=== PATIENT | female | born 1945 | race Caucasian/White ===

== ENCOUNTER 2021-03-28 08:33 | Emergency (ER) | payer MEDICARE ==
[~2021-03-28 08:33] MED LIST: ADVAIR 250-501 EACH INH; ASPIRIN CHEWABL81 MG PO; COZAAR50 MG PO; DAILY MULTIPLE1 EAC1 PO; LOPRESSOR25 MG PO; SYNTHROID50 MCG PO; VITAMIN D1000 UNI1 PO
[2021-03-28 11:14] LABS: INR 0.98 (0.9-1.2); PROTHROMBIN TIME 12.4 SECONDS (11.8-13.4)
[2021-03-28 11:15] LABS: PTT 30.2 SECONDS (24.4-34.7)
[2021-03-28 11:16] LABS: BASOPHIL 0.5 % (0-2); D-DIMER 0.6 ug/mLFEU (0.00-0.41); EOSINOPHIL 0.5 % (0-7); HCT 41.6 % (37.0-47.0); HGB 13.3 g/dl (12.5-16.0); LYMPHOCYTE 22.3 % (15-48); MCH 31.7 pg (25.0-31.0); MCV 99.3 fL (78.0-100.0); MONOCYTE 8.5 % (0-12); MPV 10.8 fL (6.0-9.5); NEUTROPHIL 67.9 % (41-80); NRBC 0; PLT 218 K/uL (150-400); RBC 4.19 M/uL (4.20-5.40); RDW 13.4 % (11.5-14.0); WBC 6.1 K/uL (4.0-10.5)
[2021-03-28 11:31] LABS: LACTIC ACID 0.9 mmol/L (0.4-1.9)
[2021-03-28 11:36] LABS: PRO-BNP 322 pg/mL (<450)
[2021-03-28 11:43] LABS: ALBUMIN 3.3 g/dL (3.4-5.0); BILIRUBIN - TOTAL 0.1 mg/dL (0.2-1.0); BUN/CREAT RATIO (CALC) 21.3 RATIO; C-REACTIVE PROTEIN 1.4 mg/dL (<=0.90); CREATININE 0.89 mg/dL (0.51-0.95); GLOBULIN (CALCULATION) 3.2 g/dL; TOTAL PROTEIN 6.5 g/dL (6.4-8.2)
[2021-03-28] MEDS ORDERED: VIBRAMYCIN100 MG PO (14:37)
[2021-03-28] MEDS ORDERED: PREDNISONE20 MG PO (14:37)
== END 2021-03-28 14:55 | disposition home or self-care (01) ==
LOC: FER 08:33
PROVIDERS: Emergency Medicine
DX: J44.1 Chronic obstructive pulmonary disease with (acute) exacerbation (principal); Z20.822 Contact with and (suspected) exposure to COVID-19; Z90.2 Acquired absence of lung [part of]; Z85.3 Personal history of malignant neoplasm of breast; Z88.1 Allergy status to other antibiotic agents; Z88.8 Allergy status to other drugs, medicaments and biological substances
CPT/HCPCS: 36415; 80053; 82728; 83605; 83615; 83690; 83735; 83880; 84145; 84484; 85025; 85379; 85610; 85730; 86140; 87040; J2930; U0002

== ENCOUNTER 2021-05-06 09:17 | Inpatient (IN) | payer MEDICARE ==
[~2021-05-06] VITALS: Ht 162.6 cm; Wt 49.0 kg
[~2021-05-06 09:17] MED LIST changes: +PREDNISONE20 MG PO; +VIBRAMYCIN100 MG PO
[2021-05-06 10:08] LABS: BASOPHIL 0.3 % (0-2); EOSINOPHIL 0.1 % (0-7); HCT 39.5 % (37.0-47.0); HGB 12.9 g/dl (12.5-16.0); LYMPHOCYTE 4.4 % (15-48); MCHC 32.7 g/dL (32.0-36.0); MONOCYTE 4.9 % (0-12); MPV 11.5 fL (6.0-9.5); NEUTROPHIL 89.7 % (41-80); NRBC 0; PLT 272 K/uL (150-400); RBC 4.03 M/uL (4.20-5.40); RDW 14.7 % (11.5-14.0); WBC 15.6 K/uL (4.0-10.5)
[2021-05-06 10:14] LABS: INR 1.1 (0.9-1.2); PROTHROMBIN TIME 13.6 SECONDS (11.8-13.4)
[2021-05-06 10:15] LABS: PTT 33.2 SECONDS (24.4-34.7)
[2021-05-06 10:18] LABS: ALBUMIN 3.2 g/dL (3.4-5.0); BILIRUBIN - TOTAL 0.7 mg/dL (0.2-1.0); BUN/CREAT RATIO (CALC) 19.6 RATIO; CREATININE 1.02 mg/dL (0.51-0.95); GLOBULIN (CALCULATION) 3.4 g/dL; POTASSIUM 4.4 mmol/L (3.5-5.1); TOTAL PROTEIN 6.6 g/dL (6.4-8.2)
[2021-05-06 10:26] LABS: PRO-BNP 275 pg/mL (<450)
[2021-05-06 10:30] LABS: D-DIMER 6.24 ug/mLFEU (0.00-0.41)
[2021-05-06 11:39] LABS: LACTIC ACID 2.2 mmol/L (0.4-1.9)
[2021-05-06 11:52] LABS: CORONAVIRUS 2019 SARS-COV-2 NEGATIVE (NEGATIVE); INFLUENZA A NAA NEGATIVE (NEGATIVE)
[2021-05-06] MEDS ORDERED: SYNTHROID100 MCG PO (15:59)
[2021-05-06] MEDS ORDERED: NORVASC5 MG PO (16:01)
--- NOTE | 2021-05-06 22:36 | NUR ---
PT REQUESTED ALL BED RAILS UP SHE FEAR FALLING OUT OF BED. A & O X4. CALL LIGHT WITHIN REACH. PT CAN AMBULATE SELF BUT AGREES TO CALL FOR ASSIST IF WANTS TO EXIT BED WITH RAILS UP. MONITORING.
[2021-05-07 06:13] LABS: BASOPHIL 0.1 % (0-2); EOSINOPHIL 0 % (0-7); HCT 35.9 % (37.0-47.0); HGB 11.9 g/dl (12.5-16.0); LYMPHOCYTE 5.4 % (15-48); MCH 32.2 pg (25.0-31.0); MCHC 33.1 g/dL (32.0-36.0); MONOCYTE 1.8 % (0-12); MPV 10.7 fL (6.0-9.5); NRBC 0; PLT 225 K/uL (150-400); RDW 14.7 % (11.5-14.0); WBC 9.1 K/uL (4.0-10.5)
[2021-05-07 06:15] LABS: NEUTROPHIL 92.2 % (41-80)
[2021-05-07 07:04] LABS: ALBUMIN 2.6 g/dL (3.4-5.0); BILIRUBIN - TOTAL 0.4 mg/dL (0.2-1.0); BUN/CREAT RATIO (CALC) 18.2 RATIO; CREATININE 0.99 mg/dL (0.51-0.95); GLOBULIN (CALCULATION) 3.3 g/dL; TOTAL PROTEIN 5.9 g/dL (6.4-8.2)
[2021-05-07] MEDS ORDERED: HABITROL7 MG TOP (07:18)
[2021-05-07 07:33] LABS: POTASSIUM 5.2 mmol/L (3.5-5.1)
[2021-05-08] MEDS ORDERED: PREDNISONE 20MG20 MG PO (16:40)
[2021-05-08] MEDS ORDERED: DULERA 200 MCG8.8 GM INH (16:40)
[2021-05-08] MEDS ORDERED: VENTOLIN HFA IN18 GM INH (16:40)
[2021-05-08] MEDS ORDERED: LEVAQUIN500 MG PO (16:40)
== END 2021-05-08 17:05 | disposition home or self-care (01) | DRG 194 ==
LOC: FER 09:17 → FMS 14:30
PROVIDERS: Emergency Medicine; ADMIT Internal Medicine
DX: J18.9 Pneumonia, unspecified organism (principal); J44.0 Chronic obstructive pulmonary disease with (acute) lower respiratory infection; J44.1 Chronic obstructive pulmonary disease with (acute) exacerbation; I10 Essential (primary) hypertension; F17.200 Nicotine dependence, unspecified, uncomplicated; Z20.822 Contact with and (suspected) exposure to COVID-19; E03.9 Hypothyroidism, unspecified; G47.00 Insomnia, unspecified; Z85.3 Personal history of malignant neoplasm of breast; Z85.118 Personal history of other malignant neoplasm of bronchus and lung; Z88.8 Allergy status to other drugs, medicaments and biological substances; Z79.82 Long term (current) use of aspirin; Z79.890 Hormone replacement therapy; Z79.899 Other long term (current) drug therapy
CPT/HCPCS: 36415; 36600; 71045; 71275; 80053; 82803; 83605; 83880; 84145; 84484; 85025; 85379; 85610; 85730; 87040; 87449; 93005; 94640; 94760; 97162; 97530-GP; J1650; J1956; J2920; Q9967; U0002

== ENCOUNTER 2022-02-25 08:54 | Emergency (ER) | payer MEDICARE ==
[~2022-02-25 08:54] MED LIST changes: +DULERA 200 MCG8.8 GM INH; +HABITROL7 MG TOP; +LEVAQUIN500 MG PO; +NORVASC5 MG PO; +PREDNISONE 20MG20 MG PO; +SYNTHROID100 MCG PO; +VENTOLIN HFA IN18 GM INH
[2022-02-25 10:37] LABS: CORONAVIRUS 2019 SARS-COV-2 NEGATIVE (NEGATIVE); INFLUENZA A NAA NEGATIVE (NEGATIVE)
[2022-02-25 10:41] LABS: BASOPHIL 0.3 % (0-2); EOSINOPHIL 1.7 % (0-7); HCT 37.7 % (37.0-47.0); HGB 12.3 g/dl (12.5-16.0); LYMPHOCYTE 20.2 % (15-48); MCH 31.5 pg (25.0-31.0); MCHC 32.6 g/dL (32.0-36.0); MCV 96.4 fL (78.0-100.0); MPV 10.2 fL (6.0-9.5); NRBC 0; PLT 386 K/uL (150-400); RBC 3.91 M/uL (4.20-5.40); RDW 14.3 % (11.5-14.0); WBC 8.9 K/uL (4.0-10.5)
[2022-02-25 10:54] LABS: INR 0.94 (0.9-1.2); PROTHROMBIN TIME 12.3 SECONDS (11.9-13.9)
[2022-02-25 11:02] LABS: LACTIC ACID 0.5 mmol/L (0.4-1.9)
[2022-02-25] MEDS ORDERED: TESSALON PERLE100 MG PO (13:07)
[2022-02-25] MEDS ORDERED: DOXYCYCLINE HY100 MG PO (13:07)
== END 2022-02-25 13:20 | disposition home or self-care (01) ==
LOC: FER 08:54
PROVIDERS: Emergency Medicine
DX: J44.0 Chronic obstructive pulmonary disease with (acute) lower respiratory infection (principal); J18.1 Lobar pneumonia, unspecified organism; Z87.891 Personal history of nicotine dependence; Z20.822 Contact with and (suspected) exposure to COVID-19
CPT/HCPCS: 36415; 71250; 83605; 83735; 84145; 84484; 85025; 85610; 87040; 93005; J1956; U0002